=== PATIENT | female | born 1970 | race Caucasian/White ===

== ENCOUNTER 2020-01-05 20:23 | Emergency (ER) | payer OTHER ==
[~2020-01-05] VITALS: Ht 162.6 cm; Wt 81.7 kg
[~2020-01-05 20:23] MED LIST: ACETAMINOPHEN325 M1 PO; AMOXICILLIN875 MG; ASPIR 8181 MG PO; ASPIRIN EC81 M1 PO; AVAPRO 150 MG150 M1 PO; BENADRYL25 MG PO; BYSTOLIC 5 MG5 M1 PO; CARVEDILOL12.5 MG PO; CIPRO250 MG PO; CLARITIN10 MG PO; COREG CR20 MG; COZAAR 50 MG TA50 M1 PO; HUMALOG100 UNIT/1 SUBQ; HYDROCHLOROTHIA25 M1 PO; IBUPROFEN 200200 M1 PO; MULTIVITAMINS1 EAC7 PO; NORVASC2.5 MG PO; NOVOLIN R100 UNIT/1 IJ; PEPCID20 MG PO; PROTONIX40 M1 PO; QUINU10 PD PO; SIMVASTATIN20 MG PO; VALACYCLOVIR HCL1 GM
[2020-01-05] MEDS ORDERED: COZAAR 25 MG TA25 M1 PO (20:50)
[2020-01-05 20:55] LABS: URINE BILIRUBIN NEGATIVE (Negative); URINE BLOOD TRACE (Negative); URINE CLARITY CLEAR; URINE COLOR YELLOW; URINE GLUCOSE-RANDOM 2+ (Negative); URINE KETONES 3+ (Negative); URINE LEUKOCYTES-REFLEX NEGATIVE (Negative); URINE NITRITE-REFLEX NEGATIVE (Negative); URINE PROTEIN NEGATIVE (Negative); URINE SPECIFIC GRAVITY >= 1.030 (1.005-1.030); URINE UROBILINOGEN 0.2 E.U./dl (0.2-1.0)
[2020-01-05 20:56] LABS: HEMATOCRIT 44.8 % (37.0-47.0); HEMOGLOBIN 14.6 gm/dL (12.0-15.0); MCH 28.5 pg (26.0-34.0); MCHC 32.6 g/dL (28.0-37.0); MCV 87.4 fL (80.0-100.0); NUCLEATED RBCS 0 /100WBC; PLATELET COUNT* 322 thou/uL (150-400); RBC 5.13 mil/uL (4.20-5.00); RDW-CV 13.3 % (10.5-14.5); WBC 13.4 thou/uL (4.0-11.0)
[2020-01-05 21:07] LABS: POTASSIUM 4.4 mmol/L (3.5-5.1)
[2020-01-05 21:08] LABS: PROTIME 10.5 Seconds (9.20-11.50)
[2020-01-05 21:15] LABS: ALBUMIN 3.7 g/dL (3.4-5.0); MAGNESIUM 1.7 mg/dL (1.8-2.4); TOTAL BILIRUBIN 0.7 mg/dL (<0.1-1.0); TOTAL PROTEIN 7.9 g/dL (6.4-8.2)
[2020-01-05 21:20] LABS: ABSOLUTE LYMPHOCYTES 1.2 thou/uL (0.8-5.3); ABSOLUTE NEUTROPHILS 12.2 thou/uL (1.6-8.1); PLATELET ESTIMATE ADEQUATE
[2020-01-06] MEDS ORDERED: REGLAN 10 MG TA10 MG PO (01:02)
[2020-01-06] MEDS ORDERED: ZOFRAN ODT4 MG PO (01:02)
[2020-01-06] MEDS ORDERED: CARAFATE 1 GM TA1 GM PO (01:02)
[2020-01-06 01:39] VITALS: BP 129/55
--- NOTE | 2020-01-06 09:25 | EKG ---
[place] [address] ELECTROCARDIOGRAM REPORT Name: CHAR DILLON Room: [facility]#: [id number] Admission: 01/05/20 Attend Phys: Discharge: 01/06/20 Date of : 74 Date of Service: 01/05/202103 Report #: [id number] THIS REPORT FOR: //name// [facility] ED Test Date: 2020-01-05 Test Time: 21:04:35 Pat Name: CHAR DILLON Department: Room: Gender: F [employer]ader: : 1970 Requested By: Mechelle Mayers Order Number: [id number] MD: Rusty Brooks Measurements Intervals [place] Rate: 94 P: 71 [place]: 144 QRS: 4 QRSD: 85 T: 23 QT: 386 QTc: 483 Interpretive Statements Sinus rhythm Probable left atrial enlargement Borderline prolonged QT interval Compared to ECG 01/08/2017 10:36:06 Sinus tachycardia no longer present Electronically Signed On 01-06-2020 9:25:15 CDT by Rusty Brooks [email or web address] <ELECTRONICALLY SIGNED> By: Rusty Brooks MD, [facility] 01/06/20 0925 03 Rusty Brooks MD, [facility] /EPI
== END 2020-01-06 01:40 | disposition home or self-care (01) ==
LOC: M.ERS 20:23
PROVIDERS: Emergency Medicine
DX: K29.70 Gastritis, unspecified, without bleeding (principal); R11.2 Nausea with vomiting, unspecified; I10 Essential (primary) hypertension; E10.9 Type 1 diabetes mellitus without complications; E78.00 Pure hypercholesterolemia, unspecified; K21.9 Gastro-esophageal reflux disease without esophagitis; Z20.828 Contact with and (suspected) exposure to other viral communicable diseases; Z98.890 Other specified postprocedural states; Z95.5 Presence of coronary angioplasty implant and graft; Z88.1 Allergy status to other antibiotic agents; Z88.6 Allergy status to analgesic agent; Z88.8 Allergy status to other drugs, medicaments and biological substances